=== PATIENT | male | born 1940 | race Caucasian/White ===

== ENCOUNTER 2017-06-21 04:04 | Observation (INO) | payer BC, MEDICARE ==
[~2017-06-21] VITALS: Ht 162.6 cm; Wt 66.5 kg
[2017-06-21] VITALS (10 sets, daily range): BP systolic 120–184; BP diastolic 67–86; PULSE 59–76; RESP 16–21; TEMP 97.4–98.5; O2SAT 95–99
[~2017-06-21 04:04] MED LIST: LEVO500T3 PO; MECL-62 PO; METO50CR PO; NEXI40CA PO; ZOFR4TAB3 SL
[2017-06-21] MEDS ORDERED: methylPREDNISolone SOD SUCC 125 MG/2 ML VIAL IVP ONE (04:30)
[2017-06-21] MEDS ORDERED: FAMOTIDINE 20 MG/2 ML VIAL IV PUSH ONE (04:30)
[2017-06-21] MEDS ORDERED: SODIUM CHLORIDE 0.9% FLUSH 10 ML FLUSH IV FLUSH PRN ×2 (04:30→06:30)
[2017-06-21] MEDS ORDERED: diphenhydrAMINE HCL 50 MG/ML VIAL IVP ONE (04:30)
--- NOTE | 2017-06-21 04:31 | PD ---
HPI Chief Complaint: Edema Time Seen by Provider: 04:26 Travel History International Travel<30 days: Yes Contact w/Intl Traveler<30days: Yes Name of Country Traveled to: [place] Traveled to known affect area: No History of Present Illness HPI 77 year-old male presents to the emergency department by private transportation for complaint of swelling to the soft palate and back of his throat. Patient also notices some mild swelling of the tongue. Patient states she has noticed these symptoms for the past 2 days. Patient states symptoms seem to worsen somewhat since last night. Patient believes that he went to bed around 8 PM and awakened approximately 2 AM noticing that there had been some increase in the swelling to the back of his throat. Patient is aware of having some mild difficulty swallowing denies any difficulty breathing. Patient has noted some difficulty swallowing while he's been eating over the past few days and has had focus on chewing his food more thoroughly. There has been no hoarseness or stridor. Patient is not reporting chest pain, wheezing, or shortness of breath. Patient is prescribed lisinopril for blood pressure control. Patient has been taking other medications. Last dose of lisinopril at 7 PM evening. PFSH Past Medical History Narrative Medical Hypertension dyslipidemia kidney stones ureteral stent; no tobacco use no alcohol use; nursing notes reviewed Autoimmune Disease: No Cancer: No Cardiovascular Problems: Yes High Cholesterol: Yes Diabetes: No Diminished Hearing: No Endocrine: No Genitourinary: Yes Hypertension: Yes Immune Disorder: No Implanted Vascular Access Dvce: Yes Kidney Stones: Yes (PREVIOUSLY) Musculoskeletal: No Neurologic: Yes Psychiatric: No Reproductive: No Respiratory: No Immunizations Current: No Renal Failure: No Thyroid Disease: No Past Surgical History Body Medical Devices: URETER L STENT Other Surgery: Yes (LASER KIDNEY STONES) Social History Alcohol Use: No Tobacco Use: No Substance Use: No Allergies-Medications (Allergen,Severity, Reaction): Coded Allergies: Prilosec (Unverified Allergy, Severe, Hives, 06/21/17) PT STATES SEVERE REACTION OF HIVES IFRAH Inhibitors (Verified Allergy, Intermediate, angioedema, 06/21/17) Penicillin (Verified Allergy, Intermediate, VOMITING RASH, 06/21/17) Cipro (Verified Adverse Reaction, Unknown, SUICIDE IDEATION, 06/21/17) Patient can tolerate Levaquin Reported Meds & Prescriptions Reported Meds & Active Scripts Active Reported Nexium (Esomeprazole DR) 20 Mg Capdr 20 Mg PO DAILY Metoprolol Tartrate 25 Mg Tab 12.5 Mg PO DAILY Lisinopril 10 Mg Tab 10 Mg PO DAILY Narrative Medication Lisinopril 10mg q d; metoprolol 12.5mg q d Review of Systems Except as stated in HPI: all other systems reviewed are Neg Physical Exam Narrative GENERAL: Well-developed well-nourished male in no acute distress no respiratory distress; no stridor or hoarseness SKIN: Warm and dry. No urticaria no skin rash. HEAD: Normocephalic. EYES: No scleral icterus. No injection or drainage. ENT: Mild tongue edema and edema is noted of the soft palate NECK: Supple, trachea midline. No JVD or lymphadenopathy. CARDIOVASCULAR: Regular rate and rhythm without murmurs, gallops, or rubs. RESPIRATORY: Breath sounds equal bilaterally. No accessory muscle use. GASTROINTESTINAL: Abdomen soft, non-tender, nondistended. Data Data Last Documented VS Vital Signs Date Time Temp Pulse Resp B/P Pulse Ox O2 Delivery O2 Flow Rate FiO2 06/21/17 06:16 18 99 Room Air 06/21/17 06:06 60 154/84 06/21/17 04:11 98.4 Orders Ecg Monitoring (06/21/17 04:26) Iv Access Insert/Monitor (06/21/17 04:26) Oximetry (06/21/17 04:26) Diphenhydramine Inj (Benadryl Inj) (06/21/17 04:30) Methylprednisolone So Succ Inj (Solumedr (06/21/17 04:30) Famotidine Inj (Pepcid Inj) (06/21/17 04:30) Sodium Chloride 0.9% Flush (Ns Flush) (06/21/17 04:30) Lorazepam Inj (Ativan Inj) (06/21/17 05:30) Place In Observation (06/21/17 ) Vital Signs (Adult) Q4H (06/21/17 06:17) Activity Oob With Assistance (06/21/17 06:17) Bulk Tank Car Unloader / Telemetry .CONTINUOUS (06/21/17 06:17) Diet Heart Healthy (06/21/17 Breakfast) Sodium Chloride 0.9% Flush (Ns Flush) (06/21/17 06:30) Sodium Chloride 0.9% Flush (Ns Flush) (06/21/17 09:00) Naloxone Inj (Narcan Inj) (06/21/17 06:30) Methylprednisolone So Succ Inj (Solumedr (06/21/17 12:00) Ranitidine Liq (Zantac Liq) (06/21/17 09:00) MDM Medical Decision Making Medical Screen Exam Complete: Yes Emergency Medical Condition: Yes Medical Record Reviewed: Yes Differential Diagnosis hereditary v idiopathic v acei-Angioedema, allergic reaction, anaphylaxis Narrative Course Patient will be started on Benadryl 25 mg IV Solu-Medrol 125 mg IV and Pepcid 20 mg IV at this time symptoms of present for 2 days and not rapidly worsening therefore this time will defer epinephrine. Suspect patient actually with angioedema reaction to IFRAH inhibitor sent appropriate cry for his blood pressure. It is now 6:05 AM patient has received Solu-Medrol Benadryl and Pepcid upon reassessment symptoms have not worsened although not markedly improved patient again is without hoarseness or stridor; anxiety that appears to have been associated with receiving possibly Benadryl versus Solu-Medrol has started to dissipate after Ativan 0.2 mg IV. In view of patient with progression of angioedema over a 2 day window with increased symptoms since 2 AM the plan would be to admit patient for observation to keep him in a controlled environment and may require FFP administration no indication for urgent/ emergent airway management with intubation at this time. Patient does note some improvement although feels very drowsy related to administration of Benadryl and Ativan. Patient does not report any ongoing or increased soft tissue swelling of the tongue or sensation of the throat. Patient was able to ambulate to the bathroom. Patient remains without hoarseness or stridor. Patient did take his last dose of lisinopril at 7 PM last evening. Physician Communication Physician Communication call placed to Letty Benites--- change to [facility] service, discussed with Dr Good --OBS Diagnosis Primary Impression: IFRAH inhibitor-aggravated angioedema Qualified Code: T78.3XXA - IFRAH inhibitor-aggravated angioedema, initial encounter Admitting Information Admitting Physician Requests: Observation Lyly Gabriel MD Jun 21, 2017 04:31
[2017-06-21] MEDS ORDERED: METO25TA3 PO (04:34)
[2017-06-21] MEDS ORDERED: LISI10TA3 PO (04:34)
[2017-06-21] MEDS ORDERED: NEXI20CA PO (04:35)
[2017-06-21] MEDS ORDERED: LORazepam 2 MG/ML VIAL IV PUSH ONE (05:30)
[2017-06-21] MEDS ORDERED: SODIUM CHLORIDE 0.9% FLUSH 10 ML FLUSH IVF PRN (06:30)
[2017-06-21] MEDS ORDERED: NALOXONE HCL 0.4 MG/ML AMP IV PRN (06:30)
[2017-06-21] MEDS ORDERED: SODIUM CHLORIDE 0.9% FLUSH 10 ML FLUSH IV FLUSH SCH (09:00)
[2017-06-21] MEDS ORDERED: RANITIDINE HCL SYRUP 150 MG/10 ML UDC PO SCH (09:00)
[2017-06-21] MEDS ORDERED: ACETAMINOPHEN 325 MG TAB PO PRN (10:00)
--- NOTE | 2017-06-21 10:06 | HHI.HP ---
[facility] Nirav ArciniegaMandeep) MD Kamari Admission Diagnosis ACEI angioedema Diagnoses: Chief Complaint: Facial swelling, throat swelling Travel History International Travel<30 Days: Yes Contact w/Intl Traveler <30 Da: Yes Name of Country Traveled to: [place] Traveled to Known Affected Are: No History of Present Illness The patient is a 77-year-old male with a past medical history of hypertension who is presenting to the hospital with throat and facial swelling. He says that on the he started to notice pain with swallowing. He also endorsed difficulty with swallowing. He thought he was coming down with a throat infection. He also noticed some swelling around the area. The next day he went to his primary care doctor who prescribed him some azithromycin. The patient continued to notice difficulty with swallowing and facial swelling. This morning at 1 AM he woke up and felt like his throat was half closed. He went to the bathroom and saw that his face was very swollen in the mirror. He decided to drive himself to the emergency department at that time. He said he took 2 azithromycin pills yesterday. The patient has been on lisinopril for a long time. The patient also notes that his blood pressure has been very high over the past few days. He said his systolic blood pressure went as high as 199. He was concerned that he might get a stroke. He took antibiotics in case infection was causing high blood pressure. The patient states that he recently got back from a seven-day trip to [facility]. He said it was very hot over there and was wondering if that could've contributed to his high blood pressure. Review of Systems Except as stated in HPI: all other systems reviewed are Neg Past Family Social History Past Medical History HTN Vertigo Kidney stones s/p removal TURP Allergies: Coded Allergies: Prilosec (Unverified Allergy, Severe, Hives, 06/21/17) PT STATES SEVERE REACTION OF HIVES IFRAH Inhibitors (Verified Allergy, Intermediate, angioedema, 06/21/17) Penicillin (Verified Allergy, Intermediate, VOMITING RASH, 06/21/17) Cipro (Verified Adverse Reaction, Unknown, SUICIDE IDEATION, 06/21/17) Patient can tolerate Levaquin Active Ordered Medications Current Medications Medications (Trade) Dose Ordered Sig/Marilyn Route Start Time Stop Time Status Last Admin (Narcan Inj) 0.4 mg UNSCH PRN IV 06/21/17 06:30 (SoluMEDROL INJ) 40 mg Q6HR IV PUSH 06/21/17 12:00 (NS Flush) 2 ml BID IV FLUSH 06/21/17 09:00 (NS Flush) 2 ml UNSCH PRN IVF 06/21/17 06:30 (Pepcid) 20 mg BID PO 06/21/17 21:00 Family History The patient denies burning family history Social History The patient does not smoke. He has rare alcohol intake. Physical Exam Vital Signs Vital Signs Date Time Temp Pulse Resp B/P Pulse Ox O2 Delivery O2 Flow Rate FiO2 06/21/17 08:00 97.4 62 16 122/69 96 06/21/17 07:38 69 16 138/86 97 06/21/17 07:24 16 96 Room Air 06/21/17 06:38 99 21 06/21/17 06:16 18 99 Room Air 06/21/17 06:06 60 18 154/84 98 Room Air 06/21/17 05:00 59 18 141/85 97 Room Air 06/21/17 04:58 18 97 Room Air 06/21/17 04:29 68 18 96 Room Air 06/21/17 04:11 98.4 68 18 184/83 96 Physical Exam GENERAL: Well-developed, well-nourished male in no acute distress. SKIN: Warm and dry. No urticaria, no skin rash. HEAD: Normocephalic. Facial swelling appreciated. EYES: No scleral icterus. No injection or drainage. ENT: Mild tongue edema and edema is noted of the soft palate. NECK: Supple, trachea midline. No JVD or lymphadenopathy. CARDIOVASCULAR: Regular rate and rhythm without murmurs, gallops, or rubs. RESPIRATORY: Breath sounds equal bilaterally. No accessory muscle use. GASTROINTESTINAL: Abdomen soft, non-tender, nondistended. EXTREMITIES: No edema. NEURO: No gross deficits. PSYCH: Mood and affect appropriate. Assessment and Plan Assessment and Plan Angioedema Likely s/t lisinopril. He still complains of throat tightness and a sore throat. Recently prescribed azithromycin by his PCP. - discontinue lisinopril. - continue IV steroids, PO Pepcid, PO Benadryl. - IVFs. - monitor airway closely. - FFP if needed. - ADAT. - hold off on antibiotics. - check a rapid strep test. HTN The pt states his blood pressure has been very high the past few days. On lisinopril and metoprolol. - d/c lisinopril s/t above. - continue metoprolol. - consider adding amlodipine to replace lisinopril. PPx: SCDs Code Status Full Discussed Condition With Pt Chano Jones DO Jun 21, 2017 10:06
[2017-06-21] MEDS ORDERED: PILL SPLITTER OTHER PRN (10:15)
[2017-06-21] MEDS: diphenhydrAMINE HCL 25 MG CAP PO SCH ×3 (11:19→22:33)
[2017-06-21] MEDS: METOPROLOL TARTRATE 25 MG TAB PO SCH (11:23)
[2017-06-21 11:36] LABS: AUTOMATED NEUTROPHIL # 6.3 TH/MM3 (1.8-7.7); BASOPHIL # 0.1 TH/MM3 (0-0.2); BASOPHIL % 1.1 % (0.0-2.0); EOSINOPHIL % 0.5 % (0.0-4.0); HEMATOCRIT 44.4 % (39.0-51.0); HEMO FLAGS DIFF FINAL; LYMPH % 9.1 % (9.0-44.0); LYMPHOCYTE # 0.6 TH/MM3 (1.0-4.8); MEAN CELL VOLUME 89.2 FL (80.0-100.0); MEAN CORPUSCULAR HGB CONC 32.5 % (32.0-36.0); MONO % 0.8 % (0.0-8.0); NEUT % 88.5 % (16.0-70.0); PLATELET COUNT 210 TH/MM3 (150-450); RED BLOOD COUNT 4.98 MIL/MM3 (4.50-5.90); WHITE BLOOD COUNT 7.1 TH/MM3 (4.0-11.0)
[2017-06-21 11:47] LABS: POTASSIUM 4.2 MEQ/L (3.5-5.1)
[2017-06-21 11:50] LABS: BICARBONATE 25.1 MEQ/L (21.0-32.0)
[2017-06-21] MEDS: FAMOTIDINE 20 MG TAB PO SCH ×2 (12:00→20:30)
[2017-06-21] MEDS: SODIUM CHLORIDE 0.9% FLUSH 10 ML FLUSH IV FLUSH SCH ×2 (13:19→20:30)
[2017-06-21] MEDS: methylPREDNISolone SOD SUCC 40 MG/1 ML VIAL IV PUSH SCH ×3 (13:19→23:18)
[2017-06-21] MEDS: SODIUM CHLOR 0.9% 1000 ML INJ 1,000 ML IV SCH ×2 (13:31→20:30)
[2017-06-21] MEDS ORDERED: FAMOTIDINE 20 MG TAB PO SCH (21:00)
[2017-06-21 21:25] LABS: HEMOGLOBIN A1b 1.7 %; HEMOGLOBIN Ao 84.7 %; HEMOGLOBIN LA1C 2.5 %; HEMOGLOBIN P3 3.8 %
[2017-06-22] VITALS (18 sets, daily range): BP systolic 109–146; BP diastolic 53–73; PULSE 56–86; RESP 16–29; TEMP 98.3; O2SAT 96–98
[2017-06-22] MEDS: diphenhydrAMINE HCL 25 MG CAP PO SCH ×4 (04:26→22:30)
[2017-06-22] MEDS: methylPREDNISolone SOD SUCC 40 MG/1 ML VIAL IV PUSH SCH (05:23)
[2017-06-22 06:40] LABS: POTASSIUM 4.1 MEQ/L (3.5-5.1)
[2017-06-22 06:44] LABS: BICARBONATE 22.8 MEQ/L (21.0-32.0); MAGNESIUM 1.7 MG/DL (1.5-2.5)
[2017-06-22] MEDS: SODIUM CHLORIDE 0.9% FLUSH 10 ML FLUSH IV FLUSH SCH ×2 (09:00→20:12)
--- NOTE | 2017-06-22 09:57 | HHI.PR ---
Subjective Remarks The patient said that his face was still swollen but much improved. He is able to swallow better. He wanted to talk with his ubghqg-uj-fwi who is a doctor over the phone. I updated her about the patient's condition. Objective Vitals Vital Signs Date Time Temp Pulse Resp B/P Pulse Ox O2 Delivery O2 Flow Rate FiO2 06/22/17 06:17 71 06/22/17 04:00 98.3 66 18 140/68 98 06/22/17 00:00 98.3 76 20 146/73 96 06/21/17 20:02 95 21 06/21/17 20:00 98.3 76 20 120/67 95 06/21/17 14:30 98.5 62 21 143/82 96 I/O 06/21/17 06/21/17 06/21/17 06/22/17 06/22/17 06/22/17 06:59 14:59 22:59 06:59 14:59 22:59 Intake Total 320 ml 980 ml 1422 ml Output Total 650 ml 1150 ml 1500 ml Balance -330 ml -170 ml -78 ml Intake Oral 220 ml 240 ml 860 ml IV Total 100 ml 740 ml 562 ml Output Urine Total 650 ml 1150 ml 1500 ml # Bowel Movements 0 0 Result Diagram: 06/21/17 1130 06/22/17 0615 Objective Remarks GENERAL: Well-developed, well-nourished male in no acute distress. SKIN: Warm and dry. No urticaria, no skin rash. HEAD: Normocephalic. Facial swelling improved. EYES: No scleral icterus. No injection or drainage. ENT: Tongue edema and edema of the soft palate have resolved. NECK: Supple, trachea midline. No JVD or lymphadenopathy. CARDIOVASCULAR: Regular rate and rhythm without murmurs, gallops, or rubs. RESPIRATORY: Breath sounds equal bilaterally. No accessory muscle use. GASTROINTESTINAL: Abdomen soft, non-tender, nondistended. EXTREMITIES: No edema. NEURO: No gross deficits. PSYCH: Mood and affect appropriate. Procedures None Medications and IVs Current Medications Medications (Trade) Dose Ordered Sig/Marilyn Route Start Time Stop Time Status Last Admin (Narcan Inj) 0.4 mg UNSCH PRN IV 06/21/17 06:30 (NS Flush) 2 ml BID IV FLUSH 06/21/17 09:00 06/21/17 13:19 (NS Flush) 2 ml UNSCH PRN IVF 06/21/17 06:30 (Lopressor) 12.5 mg DAILY PO 06/21/17 11:00 06/21/17 11:23 (Benadryl) 25 mg Q6H PO 06/21/17 10:00 06/22/17 04:26 (Tylenol) 650 mg Q4H PRN PO 06/21/17 10:00 (Pill Splitter) 1 ea UNSCH PRN OTHER 06/21/17 10:15 (Pepcid) 20 mg BID PO 06/21/17 12:00 06/21/17 20:30 (Norvasc) 5 mg DAILY PO 06/22/17 09:00 (Deltasone) 20 mg BID PO 06/22/17 21:00 UNV A/P Assessment and Plan Angioedema Likely s/t lisinopril. He still complains of throat tightness and a sore throat. Recently prescribed azithromycin by his PCP. Apparently has had angioedema in the past s/t fruit many years ago. - discontinue lisinopril. - continue PO Pepcid, PO Benadryl. - switch IV Solumedrol to prednisone. - s/p IVFs. - monitor airway. - ADAT. - refer to hot knife foxing cutter upon discharge. HTN The pt states his blood pressure has been very high the past few days. On lisinopril and metoprolol. - d/c lisinopril s/t above. - continue metoprolol. - add amlodipine to replace lisinopril. PPx: SCDs Discharge Planning Transfer to medical floor. D/c in AM if doing well Chano Jones DO Jun 22, 2017 09:57
[2017-06-22] MEDS: METOPROLOL TARTRATE 25 MG TAB PO SCH (09:59)
[2017-06-22] MEDS: FAMOTIDINE 20 MG TAB PO SCH ×2 (09:59→20:12)
[2017-06-22] MEDS: amLODIPine BESYLATE 5 MG TAB PO SCH (09:59)
[2017-06-22] MEDS: predniSONE 20 MG TAB PO SCH (20:12)
[2017-06-23] VITALS (12 sets, daily range): BP systolic 108–176; BP diastolic 52–90; PULSE 60–71; RESP 16–20; TEMP 97.5–98.4; O2SAT 95–98
[2017-06-23] MEDS: diphenhydrAMINE HCL 25 MG CAP PO SCH ×2 (04:00→09:13)
[2017-06-23] MEDS ORDERED: BENA25CA4 PO (08:46)
[2017-06-23] MEDS ORDERED: PRED20 PO ×2 (08:46)
[2017-06-23] MEDS ORDERED: AMLO5 PO (08:46)
[2017-06-23] MEDS ORDERED: FAMO20TA2 PO (08:46)
--- NOTE | 2017-06-23 08:47 | HHI.DCPOC ---
Discharge Care Plan Diagnosis: (1) IFRAH inhibitor-aggravated angioedema (2) Hypertension Goals to Promote Your Health * To prevent worsening of your condition and complications * To maintain your health at the optimal level Directions to Meet Your Goals Take your medications as prescribed Follow your dietary instruction Follow activity as directed Keep your appointments as scheduled Take your immunizations and boosters as scheduled If your symptoms worsen call your PCP, if no PCP go to Urgent Care Center or Emergency Room Smoking is Dangerous to Your Health. Avoid second hand smoke Call the 24-hour hour crisis hotline for domestic abuse at Chano Jones DO Jun 23, 2017 08:47
--- NOTE | 2017-06-23 08:53 | HHI.DS ---
Discharge Summary Admission Date Jun 21, 2017 at 06:20 Discharge Date: Jun 23, 2017 Admitting Diagnosis ACEI angioedema (1) Hypertension ICD Code: I10 (2) IFRAH inhibitor-aggravated angioedema ICD Code: T78.3XXA Diagnosis: Principal Procedures None Brief History - From Admission The patient is a 77-year-old male with a past medical history of hypertension who is presenting to the hospital with throat and facial swelling. He says that on the he started to notice pain with swallowing. He also endorsed difficulty with swallowing. He thought he was coming down with a throat infection. He also noticed some swelling around the area. The next day he went to his primary care doctor who prescribed him some azithromycin. The patient continued to notice difficulty with swallowing and facial swelling. This morning at 1 AM he woke up and felt like his throat was half closed. He went to the bathroom and saw that his face was very swollen in the mirror. He decided to drive himself to the emergency department at that time. He said he took 2 azithromycin pills yesterday. The patient has been on lisinopril for a long time. The patient also notes that his blood pressure has been very high over the past few days. He said his systolic blood pressure went as high as 199. He was concerned that he might get a stroke. He took antibiotics in case infection was causing high blood pressure. The patient states that he recently got back from a seven-day trip to [facility]. He said it was very hot over there and was wondering if that could've contributed to his high blood pressure. CBC/BMP: 06/21/17 1130 06/22/17 0615 Significant Findings Laboratory Tests Test 06/21/17 06/22/17 11:30 06:15 Neutrophils (%) (Auto) 88.5 % (16.0-70.0) Lymphocytes # (Auto) 0.6 TH/MM3 (1.0-4.8) Blood Urea Nitrogen 22 MG/DL (7-18) 19 MG/DL (7-18) Creatinine 1.50 MG/DL (0.60-1.30) Estimat Glomerular Filtration 46 ML/MIN (>89) 65 ML/MIN (>89) Rate Random Glucose 205 MG/DL 130 MG/DL (74-106) (74-106) Chloride Level 110 MEQ/L (98-107) Calcium Level 8.3 MG/DL (8.5-10.1) PE at Discharge GENERAL: Well-developed, well-nourished male in no acute distress. SKIN: Warm and dry. No urticaria, no skin rash. HEAD: Normocephalic. Facial swelling improved. EYES: No scleral icterus. No injection or drainage. ENT: Tongue edema and edema of the soft palate have resolved. NECK: Supple, trachea midline. No JVD or lymphadenopathy. CARDIOVASCULAR: Regular rate and rhythm without murmurs, gallops, or rubs. RESPIRATORY: Breath sounds equal bilaterally. No accessory muscle use. GASTROINTESTINAL: Abdomen soft, non-tender, nondistended. EXTREMITIES: No edema. NEURO: No gross deficits. PSYCH: Mood and affect appropriate. Pt update on day of discharge The patient said that he still felt a little residual swelling but he said that he was swallowing without difficulty and breathing without difficulty. He says he wants to go home. He says he'll follow-up with his primary care doctor in a few days. Hospital Course Angioedema Likely s/t lisinopril. He complained of throat tightness and a sore throat. Recently prescribed azithromycin by his PCP. Apparently has had angioedema in the past s/t fruit many years ago. We discontinued lisinopril. He was started on IV Solumedrol, PO Pepcid and PO Benadryl. He received IVFs. We monitored him in the ICU overnight. He did well and was transferred to the floor. His diet was advanced. He will complete a prednisone taper. He will also continue Pepcid for a week. He will take Benadryl as needed. He will follow up with his PCP. We will refer the pt to an meteorological observer upon discharge. HTN The pt states his blood pressure has been very high the past few days prior to admission. On lisinopril and metoprolol as an outpt. We d/c lisinopril as above. We continued his metoprolol. We added amlodipine 5 mg daily to replace his lisinopril. He will follow up with his PCP. Pt Condition on Discharge: Stable Discharge Disposition: Discharge Home Discharge Time: <= 30 minutes Discharge Instructions DIET: Follow Instructions for: Heart Healthy Diet Activities you can perform: Weight Bearing as Helen Follow up Referrals: Allergy & Immunology - 2 Weeks PCP Follow-up - 1 Week New Medications: Prednisone (Prednisone) 20 Mg Tab 20 MG PO DAILY Start this dose once completed with twice daily dosing Angioedema #3 Ref 0 TAB Amlodipine (Norvasc) 5 Mg Tab 5 MG PO DAILY Blood Pressure Management #30 TAB Diphenhydramine HCl (Benadryl Allergy) 25 Mg Cap 25 MG PO Q6H PRN Swelling #20 CAP Famotidine (Famotidine) 20 Mg Tab 20 MG PO BID Angioedema #14 TAB Prednisone (Prednisone) 20 Mg Tab 20 MG PO BID Angioedema #4 TAB Continued Medications: Esomeprazole DR (Nexium) 20 Mg Capdr 20 MG PO DAILY Ref 0 CAP Metoprolol Tartrate (Metoprolol Tartrate) 25 Mg Tab 12.5 MG PO DAILY #30 Ref 0 TAB Discontinued Medications: Lisinopril (Lisinopril) 10 Mg Tab 10 MG PO DAILY #30 Ref 0 TAB Chano Jones DO Jun 23, 2017 08:53
[2017-06-23] MEDS: FAMOTIDINE 20 MG TAB PO SCH (09:12)
[2017-06-23] MEDS: amLODIPine BESYLATE 5 MG TAB PO SCH (09:13)
[2017-06-23] MEDS: predniSONE 20 MG TAB PO SCH (09:13)
[2017-06-23] MEDS: METOPROLOL TARTRATE 25 MG TAB PO SCH (09:13)
[2017-06-23] MEDS: SODIUM CHLORIDE 0.9% FLUSH 10 ML FLUSH IV FLUSH SCH (09:15)
== END 2017-06-23 10:13 | disposition home or self-care (01) ==
LOC: PHED 04:04 → PHEDA 06:20 → PH3A 07:44 → PHICU 12:14 → PH3A 06-23 06:19
PROVIDERS: ADMIT Hospitalist; ATTEND Hospitalist
DX: T78.3XXA Angioneurotic edema, initial encounter (principal); E78.00 Pure hypercholesterolemia, unspecified; I10 Essential (primary) hypertension; E78.5 Hyperlipidemia, unspecified; Z79.899 Other long term (current) drug therapy
CPT/HCPCS: 80048; 83036; 83735; 85025; 96374; 96375; 99285; G0378; J1200; J2060; J2920; J2930; J7030; J7512